=== PATIENT | female | born 1935 | race Caucasian/White ===

== ENCOUNTER 2019-10-30 16:20 | Emergency (ER) | payer MEDICARE, SELFPAY ==
[2019-10-30] VITALS (25 sets, daily range): BP systolic 145–236; BP diastolic 89–134; PULSE 71–105; RESP 13–21; TEMP 36.8; O2SAT 90–100
--- NOTE | 2019-10-30 16:41 | ECG_ITS ---
Measurements Intervals [place] Rate: 76 P: 34 OK: 204 QRS: -80 QRSD: 136 T: 5 QT: 414 QTc: 467 Interpretive Statements SINUS RHYTHM BORDERLINE AV CONDUCTION DELAY RIGHT BUNDLE BRANCH BLOCK INFERIOR INFARCT, AGE INDETERMINATE ANTEROLATERAL INFARCT, AGE INDETERMINATE ABNORMAL ECG Electronically Signed On 10-30-2019 19:35:36 CDT by Parvez Manzano D.O.
--- NOTE | 2019-10-30 16:44 | ED.RECABL ---
HPI - Recheck/Abnormal Lab/Rx General Chief Complaint: Recheck/Abnormal Lab/Rx Stated Complaint: PATRICIA HIGH BLOOD PRESSURE Time Seen by Provider: 10/30/19 16:31 History of Present Illness HPI narrative: She presents from home for high blood pressure. She has a h/o htn on multiple medicaitons. Much higher recently. Spoke with PCP yesterday and told to increase her metoprolol. She has not started the higher dose yet. She came in to the ED because she was concerned about how high it had gotten. She denies any symptoms at this time. Related Data Home Medications Medication Instructions Recorded Confirmed buspirone mg 10/30/19 levothyroxine 10/30/19 lorazepam 10/30/19 metoprolol tartrate 10/30/19 pantoprazole PO 10/30/19 trazodone 10/30/19 10/30/19 Allergies Allergy/AdvReac Type Severity Reaction Status Date / Time Penicillins Allergy Severe RASH Verified 10/30/19 16:33 ibuprofen AdvReac Severe N/V WITH Verified 10/30/19 16:33 LARGE DOSES Review of Systems Review of Systems: All systems reviewed & are unremarkable except as noted in HPI and below Constitutional: Constitutional: Denies fever(s) and Denies weakness Eyes: Eyes: Denies change in vision ENT: Denies dizziness Cardiovascular: Cardiovascular: Denies chest pain Respiratory: Respiratory: Reports dyspnea Gastrointestinal: Gastrointestinal: Reports abdominal pain and Reports nausea Genitourinary: Genitourinary: Denies hematuria, Reports nocturia and Denies dysuria Musculoskeletal: Musculoskeletal: Denies back pain Neurologic: Denies confusion and Denies weakness Psychiatric: Psychiatric: Denies anxiety [facility] Social History Social History Gender identity (if verbalized by the patient): Female Exam Const: General: healthy appearing, no acute distress and alert Orientation/consciousness: patient oriented x3 HENMT: Head: normal to inspection Eyes: Pupils: Equal, round and reactive pupils present Neck: Neck: normal visual inspection Chest: Chest palpation & inspection: tenderness Resp: Effort & Inspection: normal respiratory effort Auscultation: clear to auscultation bilaterally, no rales, no rhonchi and no wheezes Cardio: Jugular venous distension: no JVD Rate: regular rate Rhythm: regular rhythm Heart sounds: no murmurs GI: Inspection: non-distended GI Palp: Yes Soft to palpation and No Tenderness to palpation present (GI) Skin: General skin exam: normal color Neuro: General: patient oriented x3, moves all extremities, no focal motor deficits and CN's II-XI intact bilaterally Speech: normal speech Gait exam (Neuro): Normal gait present Extrem: General: no edema Psych: Appearance: well kempt Affect: normal affect Course Vital Signs Vital signs: Vital Signs Temperature 36.8 C 10/30/19 16:27 Pulse Rate 78 10/30/19 16:27 Respiratory Rate 17 10/30/19 16:27 Blood Pressure 225/133 H 10/30/19 16:27 Pulse Oximetry 100 10/30/19 16:27 Temperature 36.8 C 10/30/19 16:27 Pulse Rate 97 10/30/19 19:32 Respiratory Rate 16 10/30/19 19:32 Blood Pressure 148/97 H 10/30/19 19:32 Pulse Oximetry 97 10/30/19 19:01 MDM - Recheck/Abnormal Lab/Rx MDM Narrative Medical decision making narrative: She presented with very high BP. Responded well to medication. Found to have UTI, this could be contributing. I will have her increase metoprolol as advised by her primary. Medical Records Attestation: I reviewed the patient's medical records. Lab Data Attestation: I reviewed the patient's lab results. Result diagrams: 10/30/19 16:55 10/30/19 16:55 Labs: Lab Results 10/30/19 10/30/19 10/30/19 Range/Units 16:55 16:55 17:45 WBC 6.3 (4.5-10.0) K/mm3 RBC 4.12 L (4.2-5.4) M/mm3 Hgb 14.4 (12.0-15.0) g/dL Hct 43.2 (37.0-47.0) % MCV 104.9 H (80-100) fl MCH 35.0 H (26-34) pg MCHC 33
[2019-10-30] MEDS: hydrALAZINE HCL 20 MG/ML VIAL 10 MG IV PUSH (17:00)
[2019-10-30 17:09] LABS: Basophils Percent Auto 0.6 % (0.2-1.2); Eosinophils Absolute Auto 0.3 K/mm3 (0-0.3); Hematocrit 43.2 % (37.0-47.0); Hemoglobin 14.4 g/dL (12.0-15.0); Immature Granulocyte Absolute 0.02 K/mm3 (0.00-0.031); Immature Granulocyte Percent A 0.3 % (0-0.5); Lymphocytes Absolute Auto 2.12 K/mm3 (0.9-3.2); Lymphocytes Percent Auto 33.7 % (18.3-44.2); Mean Corpuscular HGB Conc 33.3 g/dl (32-36); Mean Corpuscular Volume 104.9 fl (80-100); Monocytes Absolute Auto 0.5 K/mm3 (0.1-0.6); Monocytes Percent Auto 8.1 % (2.6-8.5); Neutrophils Absolute Auto 3.4 K/mm3 (1.3-6.7); Neutrophils Percent Auto 53.3 % (45.5-73.1); Platelet Count Result 208 k/mm3 (150-375); Red Blood Count 4.12 M/mm3 (4.2-5.4); Red Cell Distribution Width 13.4 % (11.5-14.5); White Blood Count 6.3 K/mm3 (4.5-10.0)
[2019-10-30 17:25] LABS: Anion Gap 3 mmol/L (8-16); Blood Urea Nitrogen 17 mg/dL (7-17); Calcium 9.3 mg/dL (8.4-10.2); Carbon Dioxide 32 mmol/L (22-30); Chloride 103 mmol/L (98-107); Estimated CRCL calculation 43 ml/min; Estimated Glomerular Filt Rate 60; Glucose 104 mg/dL (65-105); Potassium 4.2 mmol/L (3.4-5.0); Sodium 138 mmol/L (137-145)
[2019-10-30 17:56] LABS: Add Urine Microscopic? YES; Appearance Urine Clear (Clear); Bacteria Urine Trace /hpf; Bilirubin Urine Negative (Negative); Blood Urine Negative (Negative); Color Urine Straw (Yellow); Glucose Urine UA Negative (Negative); Ketones Urine Negative (Negative); Leukocyte Esterase Ur 1+ LEU/UL (Negative); Mucus Urine Rare /lpf; Nitrate Urine Negative (Negative); Protein Urine Negative (Negative); RBC Urine 0-2 /hpf (0-2); Specific Grav Ur 1.009 (1.001-1.035); Squamous Epithelial Cell Urine Moderate /hpf (Few); Urobilinogen Urine Negative mg/dL (<2.0); WBC Urine 16-20 /hpf
[2019-10-30] MEDS: LABETALOL HCL INJ 100 MG/20 ML VIAL 10 MG IV PUSH (18:32)
[2019-10-30] MEDS: CIPROFLOXACIN 500 MG TAB PO (19:16)
== END 2019-10-30 19:37 | disposition home or self-care (01) ==
PROVIDERS: Emergency Provider Emergency Medicine; PCP Family Medicine
DX: I10 Essential (primary) hypertension (principal); N39.0 Urinary tract infection, site not specified
CPT/HCPCS: 36415; 80048; 81001; 84443; 85025; 87086; 87088; 93005; 96374; 96375; 99284; A9270; J0360

== ENCOUNTER 2020-03-21 12:17 | Emergency (ER) | payer MEDICARE, SELFPAY ==
[2020-03-21 12:39] VITALS: BP 153/113; PULSE 98; RESP 16; TEMP 36.6; O2SAT 98
--- NOTE | 2020-03-21 12:50 | ED.GENADULT ---
HPI - General Adult General Chief complaint: Urogenital-Female Stated complaint: Pos UTI Source: patient and family Mode of arrival: ambulatory Limitations: dementia History of Present Illness HPI narrative: Patient brought in by her grandson with reports of mild increasing confusion since Monday of this week. 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 Patient lives with her daughter and has 24-hour supervision at home. Grandson indicates that his mother informed him the patient has had slight confusion and recently reported dysuria at the end of her urinary stream. She denies any fever, chills, abdominal pain, back pain, other urinary symptoms. No additional complaints or concerns. Related Data Home Medications Medication Instructions Recorded Confirmed buspirone mg 10/30/19 levothyroxine 10/30/19 lorazepam 10/30/19 metoprolol tartrate 10/30/19 pantoprazole PO 10/30/19 trazodone 10/30/19 10/30/19 aspirin 03/21/20 ferrous gluconate mg 03/21/20 lisinopril 03/21/20 Allergies Allergy/AdvReac Type Severity Reaction Status Date / Time Penicillins Allergy Severe RASH Verified 10/30/19 16:33 ibuprofen AdvReac Severe N/V WITH Verified 10/30/19 16:33 LARGE DOSES Review of Systems Review of Systems: Narrative: CONSTITUTIONAL: Denies fever, chills, or sweats. EYES: Denies visual changes, redness, or discharge. ENT: Denies rhinorrhea, congestion, sore throat, or otalgia. CARDIOVASCULAR: Denies chest pain, palpitations, or edema. RESPIRATORY: Denies cough or dyspnea. GASTROINTESTINAL: Denies abdominal pain, nausea, vomiting, or diarrhea. GENITOURINARY: Reports dysuria at the end of her urinary stream. Denies other urinary symptoms.. SKIN: Denies rash or itching. MUSCULOSKELETAL: Denies back pain, joint pain, or myalgia. NEUROLOGIC: Denies headache, numbness, dizziness, or weakness. Confusion reported PSYCHIATRIC: Denies anxiety or depression. [facility] Past Medical History Medical History (Updated 03/21/20 @ 13:32 by Simon Edwards, [employer], ) Anxiety Constipation CVA (cerebral vascular accident) Hypertension Hypothyroid Insomnia Surgical History Surgical History History of bladder suspension procedure Family History Family History Mother No pertinent past medical history Father No pertinent past medical history Social History Social History Smoking status: Former smoker Substance use: never Living arrangements: with family Occupation/Education: retired Gender identity (if verbalized by the patient): Female Sexual Orientation (if Verbalized by the Patient): Straight or Heterosexual Spiritual care concerns: No Exam Narrative: Exam Narrative: GENERAL: Well-appearing, well-nourished, and in no acute distress. HEAD: Normocephalic, atraumatic. EYES: PERRLA and EOMI. ENT: Nares clear, no rhinorrhea or epistaxis. Mucous membranes moist. Oropharynx without tonsillar hypertrophy exudate or other lesions. Bilateral TMs pearly victor nonbulging NECK: Supple. No adenopathy or masses. No carotid bruits or JVD CHEST: Clear to auscultation. No respiratory distress. No wheezes rales or rhonchi HEART: Regular rate and rhythm. No murmur heard. Normal peripheral pulses. ABDOMEN: Soft,nondistended, normal active bowel sounds. No abdominal tenderness. No CVA tenderness EXTREMITIES: Normal range of motion. No edema. SKIN: Warm, dry, no rash. NEURO: No focal deficits. Oriented to person place and time, alert. PSYCH: Normal mood and affect. Course Course Emergency Course: 84-year-old female who presents with several day history of slightly worsening confusion. She does have short-term memory deficits following a CVA in the past. She did report some dysuria. She had a difficult time
--- NOTE | 2020-03-21 13:02 | ED.GENADULT ---
HPI - General Adult General Chief complaint: Urogenital-Female Stated complaint: Pos UTI Source: patient and family Mode of arrival: ambulatory Limitations: dementia Related Data Home Medications Medication Instructions Recorded Confirmed buspirone mg 10/30/19 levothyroxine 10/30/19 lorazepam 10/30/19 metoprolol tartrate 10/30/19 pantoprazole PO 10/30/19 trazodone 10/30/19 10/30/19 aspirin 03/21/20 ferrous gluconate mg 03/21/20 lisinopril 03/21/20 Allergies Allergy/AdvReac Type Severity Reaction Status Date / Time Penicillins Allergy Severe RASH Verified 10/30/19 16:33 ibuprofen AdvReac Severe N/V WITH Verified 10/30/19 16:33 LARGE DOSES PMFSH Past Medical History Medical History Anxiety Constipation CVA (cerebral vascular accident) Hypertension Hypothyroid Insomnia Surgical History Surgical History History of bladder suspension procedure Family History Family History Mother No pertinent past medical history Father No pertinent past medical history Social History Social History Smoking status: Former smoker Substance use: never Living arrangements: with family Occupation/Education: retired Gender identity (if verbalized by the patient): Female Sexual Orientation (if Verbalized by the Patient): Straight or Heterosexual Spiritual care concerns: No Course Vital Signs Vital signs: Vital Signs Temperature 36.6 C 03/21/20 12:39 Pulse Rate 98 03/21/20 12:39 Respiratory Rate 16 03/21/20 12:39 Blood Pressure 153/113 H 03/21/20 12:39 Pulse Oximetry 98 03/21/20 12:39 Temperature 36.6 C 03/21/20 12:39 Pulse Rate 98 03/21/20 12:39 Respiratory Rate 16 03/21/20 12:39 Blood Pressure 153/113 H 03/21/20 12:39 Pulse Oximetry 98 03/21/20 12:39 Medical Decision Making Vital Signs Vital Signs: Vital Signs Temperature 36.6 C 03/21/20 12:39 Pulse Rate 98 03/21/20 12:39 Respiratory Rate 16 03/21/20 12:39 Blood Pressure 153/113 H 03/21/20 12:39 Pulse Oximetry 98 03/21/20 12:39 Temperature 36.6 C 03/21/20 12:39 Pulse Rate 98 03/21/20 12:39 Respiratory Rate 16 03/21/20 12:39 Blood Pressure 153/113 H 03/21/20 12:39 Pulse Oximetry 98 03/21/20 12:39 Discharge Plan Discharge Prescriptions: No Action aspirin 81 mg tablet,delayed release (DR/EC) RF: 0 lisinopril 5 mg tablet RF: 0 ferrous gluconate 324 mg (38 mg iron) tablet RF: 0 trazodone 50 mg tablet RF: 0 levothyroxine 75 mcg tablet RF: 0 lorazepam 0.5 mg tablet RF: 0 pantoprazole 40 mg tablet,delayed release (DR/EC) PO RF: 0 buspirone 30 mg tablet RF: 0 metoprolol tartrate 25 mg tablet RF: 0
--- NOTE | 2020-03-21 13:20 | PC.NURSE ---
Patient unable to void. Becoming agitated. States I went nothing in hat in toilet. Straight cathed with #8 bangl[place] straight cath without difficulty.
== END 2020-03-21 13:40 | disposition home or self-care (01) ==
PROVIDERS: Emergency Provider Nurse Practitioner; PCP Family Medicine
DX: N30.01 Acute cystitis with hematuria (principal); Z87.891 Personal history of nicotine dependence; I10 Essential (primary) hypertension; E03.9 Hypothyroidism, unspecified; Z86.73 Personal history of transient ischemic attack (TIA), and cerebral infarction without residual deficits
CPT/HCPCS: 81003; 87086; 99213; G0463

== ENCOUNTER 2021-02-20 10:14 | Emergency (ER) | payer MEDICARE, SELFPAY ==
[2021-02-20 10:16] VITALS: BP 182/120; PULSE 87; RESP 16; TEMP 36.6; O2SAT 96
[2021-02-20 12:16] LABS: Add Urine Microscopic? YES; Amorphous Sediment Urine Few; Appearance Urine Cloudy (Clear); Bacteria Urine Trace /hpf; Bilirubin Urine Negative (Negative); Blood Urine Negative (Negative); Budding Yeast Urine Present /hpf; Color Urine Yellow (Yellow); Glucose Urine UA Negative (Negative); Ketones Urine Negative (Negative); Leukocyte Esterase Ur Negative LEU/UL (Negative); Mucus Urine Rare /lpf; Nitrate Urine Negative (Negative); Protein Urine Negative (Negative); Specific Grav Ur 1.013 (1.001-1.035); Squamous Epithelial Cell Urine Moderate /hpf (Few); Urobilinogen Urine Negative mg/dL (<2.0)
--- NOTE | 2021-02-20 12:48 | ED.FEMALEGU ---
HPI - Female Genitourinary General Chief complaint: Urogenital-Female Stated complaint: pain with urination Time Seen by Provider: 02/20/21 12:16 Source: patient Mode of arrival: ambulatory Limitations: no limitations History of Present Illness HPI Narrative: Patient is an 85-year-old female complaining of dysuria described as burning on urination, that started yesterday. Patient denies any flank pain, nausea, vomiting, fever or chills. Related Data Home Medications Medication Instructions Recorded Confirmed buspirone mg 10/30/19 levothyroxine 10/30/19 lorazepam 10/30/19 metoprolol tartrate 10/30/19 pantoprazole PO 10/30/19 trazodone 10/30/19 10/30/19 aspirin 03/21/20 ferrous gluconate mg 03/21/20 lisinopril 03/21/20 atorvastatin 02/20/21 Allergies Allergy/AdvReac Type Severity Reaction Status Date / Time Penicillins Allergy Severe RASH Verified 02/20/21 12:19 ibuprofen AdvReac Severe N/V WITH Verified 02/20/21 12:19 LARGE DOSES Review of Systems Review of Systems: All systems reviewed & are unremarkable except as noted in HPI and below Constitutional: Constitutional: Denies body ache(s), Denies chills, Denies excessive sweating, Denies fatigue, Denies fever(s), Denies headache(s), Denies lethargy, Denies malaise, Denies weakness and Denies weight loss Eyes: Eyes: Denies blurry vision, Denies change in vision and Denies loss of vision ENT: Denies dizziness, Denies ear discharge, Denies headache(s), Denies lip swelling, Denies epistaxis, Denies nasal congestion, Denies neck pain, Denies throat swelling and Denies tongue swelling Cardiovascular: Cardiovascular: Denies chest pain, Denies chest pain at rest, Denies chest pain with activity, Denies diaphoresis, Denies rapid heart rate, Denies edema, Denies irregular heart rhythm, Denies lightheadedness, Denies palpitations, Denies dyspnea and Denies dyspnea on exertion Respiratory: Respiratory: Denies chest congestion, Denies cough, Denies hemoptysis, Denies dyspnea and Denies dyspnea on exertion Gastrointestinal: Gastrointestinal: Denies abdominal pain, Denies melena, Denies hematochezia, Denies diarrhea, Denies nausea, Denies vomiting and Denies hematemesis Genitourinary: Genitourinary: Reports as per HPI Musculoskeletal: Musculoskeletal: Denies abnormal gait, Denies deformity, Denies joint swelling, Denies limited range of motion, Denies neck pain and Denies numbness Neurologic: Denies Abnormal speech present, Denies abnormal gait, Denies confusion, Denies dizziness, Denies headache(s), Denies focal weakness, Denies loss of vision, Denies numbness, Denies Other visual disturbances, Denies Sensory deficit (Neuro) and Denies weakness Psychiatric: Psychiatric: Denies confusion, Denies depression, Denies auditory hallucinations, Denies homicidal ideation and Denies suicidal ideation Endocrine: Endocrine: Denies cold intolerance, Denies excessive sweating, Denies fatigue, Denies heat intolerance and Denies palpitations Hematologic/Lymphatic: Hematologic/Lymphatic: Denies easy bleeding and Denies easy bruising Allergic/Immunologic: Allergic/Immunologic: Denies lip swelling, Denies throat swelling and Denies tongue swelling PMFSH Past Medical History Medical History Anxiety Constipation CVA (cerebral vascular accident) Hypertension Hypothyroid Insomnia Surgical History Surgical History History of bladder suspension procedure Family History Family History Mother No pertinent past medical history Father No pertinent past medical history Social History Social History Smoking status: Former smoker Substance use: never Gender identity (if verbalized by the patient): Female Sexual Orientation (if Verbalized by the Patient
[2021-02-20] MEDS: CEPHALEXIN 500 MG CAPSULE PO (14:46)
[2021-02-20 14:50] VITALS: BP 120/80; PULSE 80; RESP 16; O2SAT 96
== END 2021-02-20 14:50 | disposition home or self-care (01) ==
PROVIDERS: Emergency Medicine; Emergency Provider Emergency Medicine; PCP Family Medicine
DX: N39.0 Urinary tract infection, site not specified (principal); I10 Essential (primary) hypertension; E03.9 Hypothyroidism, unspecified; Z86.73 Personal history of transient ischemic attack (TIA), and cerebral infarction without residual deficits; F41.9 Anxiety disorder, unspecified; Z87.891 Personal history of nicotine dependence
CPT/HCPCS: 51701; 81001; 99283; A9270

== ENCOUNTER 2021-03-21 10:51 | Observation (INO) | payer MEDICARE, SELFPAY ==
[2021-03-21] VITALS (31 sets, daily range): BP systolic 120–175; BP diastolic 77–124; PULSE 78–106; RESP 11–21; TEMP 36.8; O2SAT 95–100
--- NOTE | ~2021-03-21 | MR_ITS ---
EXAMINATION: MR brain/brain stem wo/w con EXAM DATE: 03/22/2021 13:21 INDICATION: Right foot numbness. TECHNIQUE: Magnetic resonance imaging (MRI) of the brain/brain stem obtained without contrast. Sagit sun T1, axial diffusion, gradient echo (T2*), T1, T2, FLAIR sequences obtained. Patient was then inj ected with 16 cc intravenous Multihance contrast. Axial and coronal postcontrast T1 weighted sequence s obtained. There is no prior study for comparison. FINDINGS: Study is limited due to patient motion. Punctate acute infarction in the right peritrigona l white matter. This would be expected to cause left-sided deficit, if any and is not a reasonable ex planation for right foot numbness. There are dilated perivascular spaces. There is moderate to severe microangiopathy. Scattered punctate foci of susceptibility, possible amyloid angiopathy. There is mo derate to severe cerebral atrophy. Bilateral cataract surgery. No suspicion of acute intracranial hem orrhage, obstructive hydrocephalus or brain mass. There are no areas of abnormal enhancement on the p ost contrast images. IMPRESSION: 1. Limited from motion. 2. Probable punctate acute right peritrigonal white matter infarction. 3. Moderate to severe age-related intracranial findings. 4. Possible amyloid angiopathy. Reviewed, dictated and finalized at location A. UTER SOFTWARE ENGINEER
--- NOTE | ~2021-03-21 | CT_ITS ---
EXAMINATION: CTA brain carotid DATE: 03/23/2021 15:21 INDICATION: Right lower extremity weakness. TECHNIQUE: Computed tomographic angiography (CTA) of the head was performed without and with 100 mL O mnipaque-350 intravenous contrast. CTA of the neck was performed with intravenous contrast. Automated exposure control and iterative reconstruction technique were employed. The dose-length product was 1 679.31 mGy-cm. Maximum intensity projection and volume rendered 3D-reconstructions were created by nguyễn kline technologist on a separate workstation. COMPARISON: Head CT 03/21/2021, brain MRI 03/22/2021 FINDINGS: HEAD CTA: There are scattered areas of low attenuation in the cerebral white matter and bilateral daniel p victor nuclei. There is no intracranial hemorrhage, acute infarction, or abnormal intracranial mass l esion. The ventricles are normal in size. There are likely changes of ocular lens replacement surgeri es. There is mild mucosal thickening in the paranasal sinuses. There are likely changes of ocular katelyn s replacement surgeries. The mastoid air cells are normal. Left vertebral artery is dominant. There i s no significant stenosis of basilar artery or the posterior cerebral arteries. The posterior communi cating arteries are normal. There is mild stenosis of the intracranial internal carotid arteries. The re is no significant stenosis of the anterior or middle cerebral arteries. There is no aneurysm. NECK CTA: The visualized portions of the lung apices demonstrate mild atelectasis. Calcified left hil ar and mediastinal lymph nodes are consistent with old granulomatous disease. There are no pathologic ally enlarged lymph nodes. There is ectasia of ascending aorta and aortic arch measuring 4.0 cm. Ther e is no significant stenosis of the vertebral arteries. There is plaque in the proximal internal cedillo tid arteries. There is 0% stenosis of the proximal right internal carotid artery relative to normal d istal artery lumen diameter (NASCET criteria). There is 0% stenosis of the proximal left internal car otid artery relative to normal distal artery lumen diameter. There is severe cervical spondylosis. IMPRESSION: 1. Extensive nonspecific cerebral white matter disease and disease of the deep victor nuclei, which lik portia represents chronic small vessel ischemic disease. 2. No aneurysm or significant intracranial arterial stenosis. 3. 0% stenosis of the proximal internal carotid arteries relative to normal distal artery lumen diame ters (NASCET criteria). Reviewed, dictated and finalized at location A. MATIC GLUING MACHINE OPERATOR IMPRESSION: 1. Extensive nonspecific cerebral white matter disease and disease of the deep victor nuclei, which likely represents chronic small vessel ischemic disease. 2. No aneurysm or significant intracranial arterial stenosis. 3. 0% stenosis of the proximal internal carotid arteries relative to normal dis sun artery lumen diameters (NASCET criteria).
--- NOTE | ~2021-03-21 | XR_ITS ---
EXAMINATION: XR chest 1V portable DATE: 03/22/2021 10:47 INDICATION: Weakness. TECHNIQUE: A single frontal view of the chest was obtained. COMPARISON: Chest 2 views 12/31/2012, CT abdomen and pelvis 09/15/2018 FINDINGS: The chest demonstrates clear lungs without pneumonia, pleural effusion, or pneumothorax. Th e heart size is normal. IMPRESSION: 1. No acute cardiopulmonary disease. Reviewed, dictated and finalized at location A. ER TENDER
--- NOTE | ~2021-03-21 | CT_ITS ---
EXAMINATION: CT brain wo con INDICATION: Right foot numbness COMPARISON: 08/24/2017 TECHNIQUE: Standard unenhanced head CT. The dose-length product (DLP) was 908.00 mGy-cm. The mA was a djusted according to patient size. Iterative reconstruction technique was employed. FINDINGS: There is no acute intraparenchymal hemorrhage. No evidence of mass lesion. No evidence of a cute infarction. 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 There is mild periventricular and subc ortical hypodensity probably related to small vessel ischemic disease. There is mild prominence of th e sulci and ventricles related to cerebral atrophy. Intracranial calcified cerebral atherosclerosis i s noted. There are no extra-axial collections. There is no mass effect or midline shift. Changes in t he globes are likely from ocular lens surgery. There is mild mucosal thickening of the paranasal sinu ses. IMPRESSION: 1. Areas of prior infarction without acute intracranial abnormality. 2. Age related findings. Reviewed, dictated and finalized at location F. [employer]
[2021-03-21 11:29] LABS: Basophils Percent Auto 0.8 % (0.2-1.2); Eosinophils Absolute Auto 0.1 K/mm3 (0-0.3); Hematocrit 42.3 % (37.0-47.0); Hemoglobin 14.3 g/dL (12.0-15.0); Immature Granulocyte Absolute 0.02 K/mm3 (0.00-0.031); Immature Granulocyte Percent A 0.4 % (0-0.5); Lymphocytes Absolute Auto 0.66 K/mm3 (0.9-3.2); Lymphocytes Percent Auto 13.1 % (18.3-44.2); Mean Corpuscular HGB Conc 33.8 g/dl (32-36); Mean Corpuscular Hemoglobin 35.4 pg (26-34); Mean Corpuscular Volume 104.7 fl (80-100); Mean Platelet Volume 10.4 fl (7.4-10.4); Monocytes Absolute Auto 0.6 K/mm3 (0.1-0.6); Monocytes Percent Auto 12.4 % (2.6-8.5); Neutrophils Absolute Auto 3.6 K/mm3 (1.3-6.7); Neutrophils Percent Auto 71.3 % (45.5-73.1); Platelet Count Result 170 k/mm3 (150-375); Red Blood Count 4.04 M/mm3 (4.2-5.4); Red Cell Distribution Width 13.4 % (11.5-14.5)
[2021-03-21 11:37] LABS: Anion Gap 13 mmol/L (8-16); Blood Urea Nitrogen 18 mg/dL (7-17); Calcium 9.2 mg/dL (8.4-10.2); Carbon Dioxide 25 mmol/L (22-30); Chloride 102 mmol/L (98-107); Estimated Glomerular Filt Rate 53; Glucose 200 mg/dL (65-110); Potassium 3.6 mmol/L (3.4-5.0); Sodium 140 mmol/L (137-145)
[2021-03-21 12:28] LABS: Add Urine Microscopic? YES; Amorphous Sediment Urine Few; Appearance Urine Cloudy (Clear); Bacteria Urine Trace /hpf; Bilirubin Urine Negative (Negative); Blood Urine Negative (Negative); Color Urine Yellow (Yellow); Glucose Urine UA Negative (Negative); Ketones Urine Negative (Negative); Leukocyte Esterase Ur Negative LEU/UL (Negative); Mucus Urine Rare /lpf; Nitrate Urine Negative (Negative); Protein Urine Negative (Negative); Specific Grav Ur 1.011 (1.001-1.035); Squamous Epithelial Cell Urine Few /hpf (Few); Urobilinogen Urine Negative mg/dL (<2.0)
[2021-03-21] MEDS: SODIUM CHLORIDE 0.9% IV 1,000 ML 999 ML IV CONT (12:38)
--- NOTE | 2021-03-21 14:50 | PC.NURSE ---
RN and PCT attempted to walk pt with walker per MD Cervantes request. Pt required x 2 assistance and appeared unstable when bearing weight. Pt's right foot pointed outward, when asked pt reports numbness to her right foot, states worse than normal. Pt thinks this is why she is having difficulty walking. Pt reports her left leg feels normal. MD Cervantes made aware.
--- NOTE | 2021-03-21 15:12 | ED.GENADULT ---
HPI - General Adult General Chief complaint: Weakness Stated complaint: increased weakness Time Seen by Provider: 03/21/21 10:59 History of Present Illness HPI narrative: Patient is an 85-year-old female who presents ER with report of weakness or numbness of the right foot. Patient has history of stroke in the past with residual right-sided weakness. At baseline she ambulates with a walker and can get around her home. She has recently been doing physical therapy on a spin bike. Apparently family reports patient started having issues with walking with her right leg last night after playing cards around 6 PM. Patient reports symptoms persisted today. She did have a fall but did not strike her head or lose consciousness. Patient has a history patient has no slurred speech or facial droop. No other complaints at this time. Patient also had urinary incontinence at home, no reports of dysuria or urinary frequency. Related Data Home Medications Medication Instructions Recorded Confirmed buspirone mg 10/30/19 levothyroxine 10/30/19 lorazepam 10/30/19 metoprolol tartrate 10/30/19 pantoprazole PO 10/30/19 trazodone 10/30/19 10/30/19 aspirin 03/21/20 ferrous gluconate mg 03/21/20 lisinopril 03/21/20 atorvastatin 02/20/21 Allergies Allergy/AdvReac Type Severity Reaction Status Date / Time Penicillins Allergy Severe RASH Verified 02/20/21 12:19 ibuprofen AdvReac Severe N/V WITH Verified 02/20/21 12:19 LARGE DOSES Review of Systems Review of Systems: All systems reviewed & are unremarkable except as noted in HPI and below Constitutional: Constitutional: Denies chills, Denies fever(s) and Reports weakness ENT: Denies nasal congestion and Denies sore throat Cardiovascular: Cardiovascular: Denies chest pain, Denies rapid heart rate and Denies radiating jaw, neck or arm pain Respiratory: Respiratory: Denies cough and Denies dyspnea Gastrointestinal: Gastrointestinal: Denies abdominal pain, Denies nausea and Denies vomiting Genitourinary: Genitourinary: Denies nocturia, Denies dysuria and Reports urinary incontinence Musculoskeletal: Musculoskeletal: Denies back pain, Denies arthralgias and Denies joint swelling Neurologic: Denies syncope, Denies headache(s), Reports focal weakness and Reports numbness [facility] Past Medical History Medical History Anxiety Constipation CVA (cerebral vascular accident) Hypertension Hypothyroid Insomnia Surgical History Surgical History History of bladder suspension procedure Family History Family History Mother No pertinent past medical history Father No pertinent past medical history Social History Social History Smoking status: Former smoker Substance use: never Gender identity (if verbalized by the patient): Female Sexual Orientation (if Verbalized by the Patient): Straight or Heterosexual Spiritual care concerns: No Exam Narrative: GENERAL: Chronically ill-appearing, well-nourished, and in no acute distress. HEAD: Normocephalic, atraumatic. EYES: PERRL and EOMI. ENT: Mucous membranes moist. CHEST: Clear to auscultation. No respiratory distress. HEART: Regular rate and rhythm. Normal peripheral pulses. ABDOMEN: Soft, nontender, nondistended, normal active bowel sounds. EXTREMITIES: Normal range of motion. No edema. SKIN: Warm, dry, no rash. NEURO: Cranial nerves II through XII intact. No slurred speech. No expressive aphasia. Patient is hard of hearing. No upper extremity drift. Patient has weakness with lifting both lower extremities off of the bed but strength seems symmetric. She can straight leg raise bilaterally for approximately 2 seconds. Alert and oriented x3. Course Course Emergency Course: Discussed wi
--- NOTE | 2021-03-21 19:45 | ADMGEN ---
This patient, Sharlene Wiseman, was admitted to Medical Room 244-. Patient/family oriented to hospital policies and general routines including ID bracelet, bed and alarms, visiting hours, pain management, procedures, bathroom and other care routines, personal items, smoking policy, room service/diet, and visiting hours. Information on how to activate the Rapid Response Team has been discussed. Patient/Family are encouraged to report perceived risks to care and to ask questions if they do not understand what they are told or what they should do.
--- NOTE | 2021-03-21 22:37 | PM.IMHP ---
H&P: HPI History of Present Illness Date/Time: 03/21/21 22:37 Chief Complaint: Weakness Narrative: This is an 85-year-old female with past medical history significant for stroke, hypertension, anemia iron deficiency, GERD. Patient was brought to the emergency room due to difficulty with ambulation she usually ambulates with the aid of a walker patient has received was right lower extremity weakness and he was noted that she could not ambulate. Last time the patient was seen at her usual was the day before at around 6:00 p.m. at the time of my visit patient denied any headaches, vision changes, new focal weakness or sensorimotor deficit, no fevers, no rigors, no chills, no nausea, no vomiting, no diarrhea, no pain or burning with urination, no muscle aches and pains, no syncope,, near syncope or lightheadedness or dizziness, she has been her usual state of health up until this. Preliminary workup was significant for CT of the head with old infarct, CBC and BMP was significant for a glucose of 200. Patient is being admitted for further evaluation and treatment. Review of Systems Review of Systems: Right lower extremity weakness, difficulty with ambulation. Constitutional: Constitutional: Denies chills, Denies fatigue, Denies fever(s), Denies night sweats, Denies poor appetite and Reports weakness Eyes: Eyes: Denies change in vision ENT: Denies dysphagia, Denies vertigo, Denies dizziness, Denies nasal congestion, Denies nasal discharge, Denies nasal obstruction and Denies odynophagia Cardiovascular: Cardiovascular: Denies pedal edema, Denies edema, Denies irregular heart rhythm, Denies claudication, Denies leg edema, Denies lightheadedness, Denies radiating jaw, neck or arm pain, Denies palpitations, Denies dyspnea, Denies dyspnea on exertion and Denies orthopnea Respiratory: Respiratory: Denies chest congestion, Denies cough, Denies excessive phlegm production and Denies dyspnea Gastrointestinal: Gastrointestinal: Denies abdominal pain, Denies dyspepsia, Denies heartburn, Denies diarrhea, Denies nausea and Denies vomiting Genitourinary: Genitourinary: Denies dysuria Musculoskeletal: Musculoskeletal: Denies arthralgias, Denies joint swelling and Reports muscle weakness Integumentary/Breasts: Skin/Breast: Denies rash Neurologic: Denies focal weakness and Denies Sensory deficit (Neuro) Psychiatric: Psychiatric: Reports no additional psychiatric complaints and Reports as per HPI Endocrine: Endocrine: Denies cold intolerance, Denies heat intolerance, Denies polyphagia, Denies polydipsia, Denies polyuria and Denies palpitations Hematologic/Lymphatic: Hematologic/Lymphatic: Reports no additional hematologic/lymphatic complaints and Reports as per HPI Allergic/Immunologic: Allergic/Immunologic: Reports no additional allergic/immunologic complaints and Reports as per HPI PMFSH Past Medical History Medical History Anxiety Constipation CVA (cerebral vascular accident) Hypertension Hypothyroid Insomnia Surgical History Surgical History History of bladder suspension procedure Family History Family History Mother No pertinent past medical history Father No pertinent past medical history Social History Social History Smoking status: Never smoker Alcohol intake: never Substance use: never Substance use type: does not use Gender identity (if verbalized by the patient): Female Sexual Orientation (if Verbalized by the Patient): Straight or Heterosexual Spiritual care concerns: No Meds Home Medications and Allergies Home Medications Medication Instructions Recorded Confirmed Type buspirone 15 mg PO BID 10/30/19 03/21/21 History lorazepam 0.5 mg PO BID PRN 10/30/19 03/21/21 History metoprolol
[2021-03-22] VITALS (13 sets, daily range): BP systolic 113–173; BP diastolic 68–91; PULSE 71–107; RESP 14–169; TEMP 36.4–37.2; O2SAT 94–99
--- NOTE | 2021-03-22 | ECHO_ITS ---
Patient Info Name: Sharlene Wiseman Age: 85 years : 1935 Gender: Female HR: 102 bpm BP: 173 / 87 mmHg Heart Rhythm: Sinus Arrhythmia Technical Quality: Fair Exam Date: 03/22/2021 7:46 AM Exam Location: [facility] Patient Status: Inpatient Admit Date: 03/21/2021 Staff Ordering Physician: Sachin Marte MD Presentation Specialist: Alee Shahid RDCS Attending Provider: Benita More MD Referring Physician: Estuardo GALE; Exam Type: CA echo doppler color flow Study Info Indications - CVA Complete two-dimensional, color flow and Doppler transthoracic echocardiogram is performed. Summary 1. Complete two-dimensional, color flow and Doppler transthoracic echocardiogram is performed. 2. Left ventricular chamber dimension is normal. 3. Left ventricular systolic function is hyperdynamic, estimated at >70%. 4. Right ventricular chamber dimension is normal. 5. There is mild aortic valve sclerosis. 6. The mitral valve annulus is moderately calcified. 7. No likely cardioembolic source was identified. Left Ventricle Left ventricular chamber dimension is normal. Left ventricular systolic function is hyperdynamic, estimated at >70%. There is moderate concentric increased left ventricular wall thickness. The left ventricular diastolic function is grade I diastolic dysfunction. Right Ventricle Right ventricular chamber dimension is normal. Left Atria Left atrial chamber dimension is mildly enlarged. Right Atria Right atrial chamber dimension is normal. Aortic Valve The aortic valve is trileaflet. There is mild aortic valve sclerosis. There is trace aortic valve regurgitation. Pulmonic Valve The pulmonic valve is not well visualized. Mitral Valve The mitral valve has normal leaflets. The mitral valve annulus is moderately calcified. Tricuspid Valve The tricuspid valve leaflets are normal. Pericardium/Pleural The pericardium appears normal. Aorta The aortic root size at the sinus of Valsalva is normal. Left Ventricular Outflow Tract Name Value Normal LVOT 2D LVOT Diameter 2.0 cm LVOT Doppler LVOT Peak Gradient 9 mmHg LVOT Mean Gradient 4 mmHg LVOT VTI 19 cm LVOT VTI/AV VTI Ratio 0.9 LVOT Stroke Volume 63 ml LVOT CO 5.1 l/min Pulmonic Valve Name Value Normal RVOT Doppler RVOT Peak Gradient 2 mmHg PV Doppler PV Peak Gradient 6 mmHg Mitral Valve Name Value Normal
[2021-03-22] MEDS: LEVOTHYROXINE SODIUM 75 MCG TABLET PO (05:36)
[2021-03-22] MEDS: busPIRone HCL 5 MG TABLET 15 MG PO ×2 (05:37→17:35)
[2021-03-22] MEDS: ASPIRIN 81 MG ENTERIC TABLET PO (05:37)
[2021-03-22] MEDS: SENNA/DOCUSATE SODIUM TABLET 1 TAB PO (05:38)
[2021-03-22] MEDS: PANTOPRAZOLE 40 MG TABLET PO (05:38)
[2021-03-22] MEDS: FERROUS GLUCONATE 324 MG TABLET PO (05:38)
[2021-03-22] MEDS: METOPROLOL TARTRATE 25 MG TABLET PO ×2 (05:38→20:24)
--- NOTE | 2021-03-22 10:15 | PM.IMPN ---
Progress Note: A&P Assessment and Plan (1) Leg weakness: Code(s): R29.898 - Other symptoms and signs involving the musculoskeletal system Status: Acute Assessment and Plan: Patient complains of right leg weakness above her baseline. CT the brain showing old CVAs but no acute findings. UA noted but urine culture negative. Possible mild renal insufficiency noted related to dehydration? This could contribute to the perception that her right leg is weaker. Macrocytosis noted. Will check B12 and folate levels. MRI of the brain has been ordered. Add chest x-ray. Follow up on echo results. (2) Hypertension: Code(s): I10 - Essential (primary) hypertension Status: Acute Assessment and Plan: Patient's blood pressure was reviewed on 03/22 Blood pressure remains poorly controlled at times. Given the fact patient may have had a small CVA, will allow for permissive hypertension at this time. Will continue current medications. Continue to follow. (3) Hypothyroid: Code(s): E03.9 - Hypothyroidism, unspecified Status: Acute Assessment and Plan: Patient with a history of hypothyroidism. Levothyroxine has been resumed. Check TSH to exclude uncontrolled thyroid disease to explain her weakness. (4) Diabetes mellitus: Code(s): E11.9 - Type 2 diabetes mellitus without complications Status: Acute Assessment and Plan: The patient has known diet-controlled diabetes. The patient's blood glucose was reviewed on 03/22 Glucose was elevated on admisison but no other values to review. Start AccuCheks covering with sliding scale. Hypoglycemia protocol will be available as needed. 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 PT and OT has been ordered. Continue aspirin. Will add Lipitor. (6) Gait disturbance: Code(s): R26.9 - Unspecified abnormalities of gait and mobility Status: Acute Assessment and Plan: As above. Start PT/OT. (7) DVT prophylaxis: Code(s): Z29.9 - Encounter for prophylactic measures, unspecified Status: Acute Assessment and Plan: Lovenox Subjective Date/time seen: 03/22/21 10:15 Interval history: 85-year-old female with a history of CVA, hypertension and diabetes presents emergency room with complaints of weakness in the right lower extremity. Patient denies any chest pain or shortness of breath. No nausea or vomiting. She slept well last night. She does not check her blood pressure at home. She denies any upper extremity weakness. She has not been out of bed yet today. Exam Narrative: AF 98.9 146/91 102 18 96% ra Gen - NARD Chest - CTA bilaterally, nml RR CV - RRR S1/S2 with a 2 in 6 systolic murmur her lab some the upper sternal borders. Abd - Soft, NT/ND, Positive BS Ext - No pedal edema Neuro - Alert and oriented x4. Bilateral lower extremity hip flexors are 4/5. Normal strength with dorsi and plantar flexion. Psych - Nml mood. She is slow to respond with masked feces and flat affect Skin - Warm and dry Objective Data Vital Signs Vital Signs: Vital Signs - 24 hr 03/21/21 10:49 03/21/21 11:50 03/21/21 12:00 Temperature Pulse Rate 89 83 83 Respiratory Rate 18 21 H 20 Blood Pressure 120/77 Pulse Oximetry 97 95 96 03/21/21 12:15 03/21/21 12:30 03/21/21 12:31 Temperature Pulse Rate 80 78 78 Respiratory Rate 20 17 18 Blood Pressure 135/83 Pulse Oximetry 96 95 98 03/21/21 12:50 03/21/21 13:05 03/21/21 13:15 Temperature Pulse Rate 78 80 81 Respiratory Rate 20 20 15 Blood Pressure 172/95 H Pulse Oximetry 97 99 98 03/21/21 13:16 03/21/21 13:30 03/21/21 13:45 Temperature Pulse Rate 83 83 82 Respiratory Rate 19 21 H 19 Blood Pressure Pulse Oximetry
[2021-03-22] MEDS: PERFLUTREN LIPID MICROSPHERES 1.5 ML VIAL DILUTED TO 10 ML TOTAL VOLUME IV PUSH (13:05)
[2021-03-22 14:53] LABS: Alanine Aminotransferase 23 U/L (4-35); Alkaline Phosphatase 51 U/L (38-126); Anion Gap 8 mmol/L (8-16); Aspartate Amino Transferase 36 U/L (14-36); Bilirubin,Total 0.7 mg/dL (0.2-1.3); Blood Urea Nitrogen 23 mg/dL (7-17); Calcium 8.9 mg/dL (8.4-10.2); Carbon Dioxide 25 mmol/L (22-30); Chloride 104 mmol/L (98-107); Estimated Glomerular Filt Rate 53; Glucose 176 mg/dL (65-110); Sodium 137 mmol/L (137-145)
[2021-03-22 15:55] LABS: Thyroid Stimulating Hormone Reflex 0.888 uIU/mL (0.465-4.68)
[2021-03-22 15:58] LABS: Folic Acid 15.4 ng/mL (2.76->20)
[2021-03-22] MEDS: LORazepam (*CRX) 0.5 MG TABLET PO (17:35)
[2021-03-22] MEDS: ATORVASTATIN 40 MG TABLET PO (17:35)
[2021-03-22 20:44] LABS: Glucose Point of Care 131 mg/dl (65-105)
[2021-03-23] VITALS (13 sets, daily range): BP systolic 131–151; BP diastolic 69–84; PULSE 54–78; RESP 14–18; TEMP 36.3–36.9; O2SAT 95–99; BMI 27.3
[2021-03-23 05:57] LABS: Anion Gap 9 mmol/L (8-16); Blood Urea Nitrogen 21 mg/dL (7-17); Calcium 8.4 mg/dL (8.4-10.2); Carbon Dioxide 24 mmol/L (22-30); Chloride 103 mmol/L (98-107); Estimated Glomerular Filt Rate 60; Glucose 126 mg/dL (65-110); Potassium 3.3 mmol/L (3.4-5.0); Sodium 136 mmol/L (137-145)
[2021-03-23] MEDS: LEVOTHYROXINE SODIUM 75 MCG TABLET PO (07:33)
[2021-03-23] MEDS: POTASSIUM CHLORIDE 20 MEQ TABLET 40 MEQ PO (07:33)
[2021-03-23] MEDS: SENNA/DOCUSATE SODIUM TABLET 1 TAB PO (08:27)
[2021-03-23] MEDS: FERROUS GLUCONATE 324 MG TABLET PO (08:27)
[2021-03-23] MEDS: busPIRone HCL 5 MG TABLET 15 MG PO ×2 (08:27→17:36)
[2021-03-23] MEDS: ATORVASTATIN 40 MG TABLET PO (08:27)
[2021-03-23] MEDS: METOPROLOL TARTRATE 25 MG TABLET PO ×2 (08:27→21:59)
[2021-03-23] MEDS: ASPIRIN 81 MG ENTERIC TABLET PO (08:27)
[2021-03-23] MEDS: PANTOPRAZOLE 40 MG TABLET PO (08:28)
[2021-03-23 10:42] LABS: Rapid Plasma Reagin Non-Reactive (NonReactive)
[2021-03-23 11:53] LABS: Glucose Point of Care 163 mg/dl (65-105)
--- NOTE | 2021-03-23 14:07 | PM.IMPN ---
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 MR brain was limited due to motion but showing a probable punctate acute right sided CVA. Echo showing EF 70% and Grade I Diastolic Dysfunction. Continue aspirin. Lipitor added. Check CTA of the head and neck. Consider Plavix. Neuro consult. Continue PT and OT. (2) Leg weakness: Code(s): R29.898 - Other symptoms and signs involving the musculoskeletal system Status: Acute Assessment and Plan: Patient complains of right leg weakness above her baseline. CT the brain showing old CVAs but no acute findings. Urine culture negative. Possible mild renal insufficiency noted related to dehydration? This could contribute to the perception that her right leg is weaker. Macrocytosis noted with normal B12 and folate levels; LFTs normal. MRI of the brain showing probable right sided CVA but should not explain her right leg weakness. MR brain also showing moderate to severe age-related intracranial findings. Echo as above. Suspect overall right leg weakness related to dehydration. (3) Hypertension: Code(s): I10 - Essential (primary) hypertension Status: Acute Assessment and Plan: Patient's blood pressure was reviewed on 03/23 Blood pressure reasonably well controlled. Will allow for permissive HTN. Will continue current medications. Continue to follow. (4) Hypothyroid: Code(s): E03.9 - Hypothyroidism, unspecified Status: Acute Assessment and Plan: TSH normal. Continue Levothyroxine. (5) Diabetes mellitus: Code(s): E11.9 - Type 2 diabetes mellitus without complications Status: Acute Assessment and Plan: A1c 7.0. The patient has known diet-controlled diabetes. The patient's blood glucose was reviewed on 03/23 Glucose appears to be reasonably well controlled. Start AccuCheks covering with sliding scale. Hypoglycemia protocol will be available as needed. (6) Gait disturbance: Code(s): R26.9 - Unspecified abnormalities of gait and mobility Status: Acute Assessment and Plan: Related to above. Start PT/OT. (7) DVT prophylaxis: Code(s): Z29.9 - Encounter for prophylactic measures, unspecified Status: Acute Assessment and Plan: Lovenox Subjective Date/time seen: 03/23/21 14:07 Interval history: 85-year-old female with a history of CVA, hypertension and diabetes presents emergency room with complaints of weakness in the right lower extremity. Patient alert but less communicative. She feels okay. Denies CP or SOB. Spoke with dtr who stated the patient is not very active at home. She was having right leg weakness prompting this admission but no facial droop. No falls. No hx of bleeding episodes per dtr. Exam Narrative: AF 98.4 138/79 66 14 96% ra Gen - NARD Chest - lungs clear anterioly and in the flanks CV - RRR S1/S2. Tele showing no significant dysrhythmias Abd - Soft, NT/ND, Positive BS Ext - No pedal edema Neuro - normal plantar and dorsiflexion. costumer weak but equal. Psych - Nml mood. She is slow to respond with flat affect Skin - Warm and dry Objective Data Vital Signs Vital Signs: Vital Signs - 24 hr 03/22/21 16:00 03/22/21 18:00 03/22/21 19:35 Temperature 97.8 F 97.6 F Pulse Rate 78 75 77 Respiratory Rate 16 16 Blood Pressure 113/68 144/79 H Pulse Oximetry 95 97 03/22/21 20:00 03/22/21 20:24 03/23/21 00:00 Temperature Pulse Rate 72 77 74 Respiratory Rate Blood Pressure Pulse Oximetry 03/23/21 01:00 03/23/21 04:00 03/23/21 06:00 Temperature 97.7 F 97.5 F L Pulse Rate 69 72 70 Respiratory Rate 16 14 Blood Pressure 137/69 138/80 Pulse Oximetry 99 96 03/23/21 10:00 Temperature 98.4 F Puls
[2021-03-23] MEDS: SODIUM CHLORIDE 0.9% IV 1,000 ML 100 ML IV CONT (15:46)
[2021-03-23] MEDS: ENOXAPARIN 40 MG/0.4 ML SYRINGE SUB-Q (15:47)
[2021-03-23 16:55] LABS: Glucose Point of Care 154 mg/dl (65-105)
--- NOTE | 2021-03-23 16:59 | PC.NURSE ---
On 03/23/21, the student Max Boateng provided care and completed [employer] documentation on this patient. I have reviewed the students documentation and agree with the findings.
[2021-03-24] VITALS (7 sets, daily range): BP systolic 129–211; BP diastolic 75–98; PULSE 54–91; RESP 12–16; TEMP 36.4–36.8; O2SAT 97–99
[2021-03-24] MEDS: hydrALAZINE HCL 20 MG/ML VIAL 10 MG IV PUSH (02:26)
[2021-03-24 02:55] LABS: Glucose Point of Care 150 mg/dl (65-105)
[2021-03-24] MEDS: LEVOTHYROXINE SODIUM 75 MCG TABLET PO (06:01)
[2021-03-24 06:17] LABS: Anion Gap 9 mmol/L (8-16); Blood Urea Nitrogen 17 mg/dL (7-17); Calcium 8.8 mg/dL (8.4-10.2); Carbon Dioxide 23 mmol/L (22-30); Chloride 105 mmol/L (98-107); Estimated CRCL calculation 51 ml/min; Estimated Glomerular Filt Rate > 60; Glucose 131 mg/dL (65-110); Magnesium 1.9 mg/dL (1.6-2.3); Potassium 3.6 mmol/L (3.4-5.0); Sodium 137 mmol/L (137-145)
[2021-03-24 07:57] LABS: Glucose Point of Care 125 mg/dl (65-105)
[2021-03-24] MEDS: ATORVASTATIN 40 MG TABLET PO (08:56)
[2021-03-24] MEDS: ENOXAPARIN 40 MG/0.4 ML SYRINGE SUB-Q (08:56)
[2021-03-24] MEDS: SENNA/DOCUSATE SODIUM TABLET 1 TAB PO (08:56)
[2021-03-24] MEDS: PANTOPRAZOLE 40 MG TABLET PO (08:56)
[2021-03-24] MEDS: busPIRone HCL 5 MG TABLET 15 MG PO (08:56)
[2021-03-24] MEDS: ASPIRIN 81 MG ENTERIC TABLET PO (08:56)
[2021-03-24] MEDS: METOPROLOL TARTRATE 25 MG TABLET PO (08:57)
--- NOTE | 2021-03-24 09:08 | PM.DS ---
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 MR brain was limited due to motion but showing a probable punctate acute right sided CVA. Echo showing EF 70% and Grade I Diastolic Dysfunction. CTA head/neck showing no significant stenosis or aneurysm. No acute CVAs noted. We continued aspirin and added Lipitor. She worked with PT and OT. ACUTE CVA WAS RULED OUT. (2) Leg weakness: Code(s): R29.898 - Other symptoms and signs involving the musculoskeletal system Status: Acute Assessment and Plan: Patient complains of right leg weakness above her baseline. CT the brain showing old CVAs but no acute findings. Urine culture negative. Possible mild renal insufficiency noted related to dehydration? This could contribute to the perception that her right leg is weaker. Macrocytosis noted with normal B12 and folate levels; LFTs normal. MRI of the brain showing probable right sided CVA but should not explain her right leg weakness and CTA of the brain showing acute findings. MR brain also showing moderate to severe age-related intracranial findings. Echo as above. Suspect overall right leg weakness related to dehydration and not acute CVA. (3) Hypertension: Code(s): I10 - Essential (primary) hypertension Status: Acute Assessment and Plan: Patient's blood pressure was monitored closely and was elevated at times. We continue metoprolol. Will have blood pressure monitored closely at facility with further adjustment per facility physician. (4) Hypothyroid: Code(s): E03.9 - Hypothyroidism, unspecified Status: Acute Assessment and Plan: TSH normal. We continued Levothyroxine. (5) Diabetes mellitus: Code(s): E11.9 - Type 2 diabetes mellitus without complications Status: Acute Assessment and Plan: A1c 7.0. The patient has known diet-controlled diabetes. The patient's blood glucose was monitored closely with AccuCheks covering with sliding scale. Hypoglycemia protocol was available as needed. (6) Gait disturbance: Code(s): R26.9 - Unspecified abnormalities of gait and mobility Status: Acute Assessment and Plan: Related to above. She worked with PT and OT. DS: Summary Hospital Course Reason for hospitalization: 85-year-old female with a history of CVA, hypertension and diabetes presents emergency room with complaints of weakness in the right lower extremity. Please see H&P for details. Hospital Course: Please see above for details of hospital course. Status at Discharge Cognitive/behavioral status at discharge: Stable Time Spent with Patient Time attestation: Total time spent providing and/or coordinating discharge services: 35 minutes Time spent: Greater than 30 minutes Specific discharge activities: Discussed with daughter. Exam Narrative: AF 97.9 171/96 91 16 99% ra Gen - NARD Chest - CTA bilaterally, nml RR CV - RRR S1/S2. Tele showing no significant dysrhythmias Abd - Soft, NT/ND, Positive BS Ext - No pedal edema Neuro - able to sit at the side of bed unassisted. Able to stand and pivot to the chair with standby assist Psych - Nml mood. Slow to respond with flat affect Skin - Warm and dry DS: Data Data Completed and Pending Labs on day of discharge: Labs from last 24 hours 03/24/21 03/24/21 03/23/21 07:53 05:16 20:32 Sodium 137 Potassium 3.6 Chloride 105 Carbon Dioxide 23 Anion Gap 9 BUN 17 Creatinine 0.70 Estim Creat Clear Calc 51 Estimated GFR > 60 Glucose 131 H POC Capillary Glucose 125 H 150 H Calcium 8.8 Magnesium 1.9 RPR 03/23/2103/23
[2021-03-24] MEDS: FERROUS GLUCONATE 324 MG TABLET PO (09:41)
[2021-03-24 10:32] LABS: EDCOVIDSCREEN Positive (Negative)
[2021-03-24 11:52] LABS: Glucose Point of Care 153 mg/dl (65-105)
--- NOTE | 2021-03-24 11:54 | WPDNEURCNPN ---
Assessment and Plan Additional Plan 1. Gait dysfunction with decreased strength of the right lower extremity number2 subcortical acute with possibility of amyloid angiopathy 3. COVID positive 4 with negative CTA and MRI most like Karyn following the category of TIA Nahomi will need the physical therapy and occupation and needs to be followed through as an outpatient for ongoing right lower extremity weakness resulting gait disturbance will prefer to have the EMG nerve conduction study Consult date: 03/24/21 HPI: Sharlene Wiseman is a 85 year old femaleAdmitted to the hospital for the complaints of generalized weakness in addition to the ongoing history of 1. Stroke 2. Hypertension 3. Iron deficiency anemia 4. GERD as per the information available patient usually ambulates with the aid of a walker for the right lower extremity weakness she had no history of generalized symptomatology initial workup included CT scan of the head which documented the old stroke the CBC and BMP were only consistent with the blood sugar of 200 she was mainly admitted for further evaluation and treatment, past history was consistent with the cerebrovascular accident and anxiety she was never smoker or drinker and her medications particularly included the BuSpar 15 mg twice a day lorazepam 0.5 mg b.i.d. p.r.n. aspirin 81 mg daily and metoprolol 25 mg b.i.d. initial evaluation as mentioned before documented CT scan of the head with age-related changes and old infarct of the left thalamus no mention about the ventricle dilatation MRI of the brain documented punctate acute right peritrigonal white matter infarction in addition to the possibility of amyloid angiopathy and chest x-ray was negative her SARS-CoV-2 it was positive and rest of the labs was not remarkable Review of Systems Review of Systems: All systems reviewed & are unremarkable except as noted in HPI and below PMFSH Past Medical History Medical History Anxiety Constipation CVA (cerebral vascular accident) Diabetes mellitus Hypertension Hypothyroid Insomnia Surgical History Surgical History History of bladder suspension procedure Family History Family History Mother No pertinent past medical history Father No pertinent past medical history Social History Social History Smoking status: Never smoker Alcohol intake: never Substance use: never Substance use type: does not use Gender identity (if verbalized by the patient): Female Sexual Orientation (if Verbalized by the Patient): Straight or Heterosexual Spiritual care concerns: No Meds Home Medications and Allergies Home Medications Medication Instructions Recorded Confirmed Type buspirone 15 mg PO BID 10/30/19 03/21/21 History metoprolol tartrate 25 mg PO BID 10/30/19 03/21/21 History pantoprazole 40 mg PO DAILY 10/30/19 03/21/21 History aspirin 81 mg PO DAILY 03/21/20 03/21/21 History ferrous gluconate 324 mg PO DAILY 03/21/20 03/21/21 History levothyroxine 75 mcg PO DAILY 03/21/21 03/21/21 History sennosides-docusate sodium 1 tab-cap PO DAILY 03/21/21 03/21/21 History [Senna-S] lorazepam 0.5 mg PO BID PRN #10 tablet 03/24/21 Rx Allergies Allergy/AdvReac Type Severity Reaction Status Date / Time Penicillins Allergy Severe RASH Verified 02/20/21 12:19 ibuprofen AdvReac Severe N/V WITH Verified 02/20/21 12:19 LARGE DOSES Vital Signs Vital Signs - 24 hr 03/23/21 12:00 03/23/21 14:00 03/23/21 16:00 Temperature 36.6 C Pulse Rate 77 66 66 Respiratory Rate 18 Blood Pressure 142/84 H Pulse Oximetry 95 03/23/21 18:04 03/23/21 20:00 03/23/21 20:13 Temperature 36.3 C L 36.6 C Pulse Rate 62 58 L 54 L Respiratory Rate 18 14 14 Blood Pressure 131/73 151/77 H Pulse Oximetry 99 96 96 01
== END 2021-03-24 15:25 ==
LOC: ANHED 17:22 → ANH2MED 03-23 10:29
PROVIDERS: Admitting Provider Internal Medicine; Emergency Provider Emergency Medicine; PCP Family Medicine; Visit Provider Internal Medicine
DX: U07.1 COVID-19 (principal); R53.1 Weakness; I69.351 Hemiplegia and hemiparesis following cerebral infarction affecting right dominant side; E11.9 Type 2 diabetes mellitus without complications; I10 Essential (primary) hypertension; D50.9 Iron deficiency anemia, unspecified; E03.9 Hypothyroidism, unspecified; K21.9 Gastro-esophageal reflux disease without esophagitis; R26.9 Unspecified abnormalities of gait and mobility; Z79.82 Long term (current) use of aspirin
CPT/HCPCS: 36415; 51701; 70450; 70496; 70498; 70553; 71045; 80048; 80053; 81001; 82607; 82746; 82948; 83036; 83735; 84443; 85025; 86592; 87426; 96360; 96361; 96372; 96374; 96375; 97161; 97166; 97530; 97535; 99285; A9270; A9577; C8929; C9803; G0378; J0360; J1650; J7030; Q9957; Q9967